=== PATIENT | female | born 1990 | race Caucasian/White ===

== ENCOUNTER 2019-04-13 15:14 | Outpatient (CLI) | payer OTHER ==
--- NOTE | 2019-04-13 15:53 | ULT ---
THYROID ULTRASOUND INDICATION: Isadora's disease TECHNIQUE: Grayscale and color Doppler images were obtained of the thyroid gland. COMPARISON: None FINDINGS: Right thyroid lobe: The right thyroid lobe measures 4.9 x 1.5 x 1.8 cm. There is diffuse heterogeneit y without a focal thyroid nodule. Thyroid isthmus: The thyroid isthmus measures 0.45 cm. Diffuse heterogeneity of the thyroid isthmus. Left thyroid lobe: The left thyroid lobe measures 4.6 x 1.6 x 1.5 cm. There is diffuse heterogeneity of the left thyroid lobe without a focal thyroid nodule. IMPRESSION: 1. No focal thyroid lesion. Diffuse heterogeneous appearance of the thyroid gland.
== END 2019-04-13 15:15 | disposition home or self-care (01) ==
LOC: BICULT 15:14
PROVIDERS: ATTEND Internal Medicine
DX: E04.2 Nontoxic multinodular goiter (principal); E06.3 Autoimmune thyroiditis
CPT/HCPCS: 76536

== ENCOUNTER 2022-04-15 09:29 | Outpatient (CLI) | payer BC | END 2022-04-15 09:30 | disposition home or self-care (01) | LOC: BICMAMMO 09:29 | PROVIDERS: ATTEND Physician Assistant | DX: N64.4 Mastodynia (principal) | CPT/HCPCS: 77066; G0279 ==